=== PATIENT | female | born 1985 | race American Indian/Alaskan Native ===

== ENCOUNTER 2019-05-01 14:35 | Emergency (ER) | payer MEDICAID ==
[2019-05-01 14:50] VITALS: BP 149/86
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
--- NOTE | 2019-05-01 16:02 | XRay Report ---
RIGHT FINGERS, 3 VIEWS INDICATION: 2nd distal finger pain. COMPARISON: None. IMPRESSION: No acute osseous or soft tissue abnormality. No significant DJD. Signer Name: Woo Duarte Jr, MD Signed: 05/01/2019 3:57 PM Workstation Name: [id number]
[2019-05-01] MEDS ORDERED: IBUPROFEN PO ONE (17:53)
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
== END 2019-05-01 18:45 | disposition home or self-care (01) ==
LOC: ED 14:35
DX: S66.310A Strain of extensor muscle, fascia and tendon of right index finger at wrist and hand level, initial encounter (principal); K21.9 Gastro-esophageal reflux disease without esophagitis; F17.200 Nicotine dependence, unspecified, uncomplicated; Y04.8XXA Assault by other bodily force, initial encounter; Y93.89 Activity, other specified; Y92.89 Other specified places as the place of occurrence of the external cause; Y99.8 Other external cause status